=== PATIENT | male | born 1980 | race Caucasian/White ===

== ENCOUNTER → 2019-02-16 18:39 | Outpatient (CLI) | payer OTHER, SELFPAY ==
--- NOTE | 2019-02-16 18:41 | DI.MRI.S_ITS ---
PROCEDURE: MR CERVICAL SPINE WO CON INDICATIONS: Progressive upper extremity weakness TECHNIQUE: Noncontrast sagittal T1 spin echo and T2 fast spin echo, sagittal STIR, foraminal oblique sagittal T2 fast spin echo, and axial gradient echo or T2 fast spin echo through the cervical spine. COMPARISON: [facility], MR, C-SPINE WITHOUT CONTRAST, 08/17/2015, 10:50. FINDINGS: Image quality: Excellent. Alignment and Curvature: There is normal bony alignment. Bone Marrow: Marrow demonstrates normal overall signal. Spinal Cord: Visualized spinal cord has normal size and signal. No cerebellar tonsillar herniation. Paraspinous Soft Tissues: No paravertebral masses. Prevertebral soft tissues are normal in thickness. C2-C3: Normal appearance. C3-C4: Interval increase in disc bulge. Mild indentation on the ventral aspect of the cord. Mild canal stenosis. AP diameter of the canal is 9.5 mm. Bilateral uncovertebral joint hypertrophy. Very mild bilateral foraminal narrowing. C4-C5: The mild diffuse disc bulge with flattening of the anterior aspect of the cord. Mild canal stenosis. AP diameter of the canal is 10 mm. The bilateral uncovertebral joint hypertrophy. Mild left facet hypertrophy. Mild right foraminal narrowing and moderate left foraminal narrowing with indentation on the nerve root sleeve. C5-C6: The interval progression. Diffuse disc bulge. Indentation of the ventral aspect of cord. Moderate to severe canal stenosis. AP diameter of the canal is 8 mm. Bilateral uncovertebral joint hypertrophy. Bilateral facet hypertrophy. Moderate bilateral foraminal narrowing with indentation on the bilateral C6 nerve root sleeves. C6-C7: Interval progression. Moderate diffuse disc bulge flattening the anterior aspect of the cord. Moderate to severe canal stenosis. AP diameter of the canal is 8 mm. Large bilateral uncovertebral joint osteophytes. Severe right foraminal narrowing and moderate to severe left foraminal narrowing with indentation on the bilateral C7 nerve root sleeves. C7-T1: No canal stenosis or foraminal stenosis. IMPRESSION: 1. Diffuse cervical spondylitic change. 2. Interval progression. Multilevel canal stenosis, mild at C3-C4 and C4-C5, and moderate to severe at C5-C6 and C6-C7. 3. Multilevel foraminal narrowing as described above, including moderate left foraminal narrowing at C4-C5, moderate bilateral foraminal narrowing at C5-C6, and severe right and moderate to severe left foraminal narrowing at C6-C7. Dictated by: Carlos Stuart M.D. on 02/17/2019 at 8:31 Approved by: Carlos Stuart M.D. on 02/17/2019 at 8:45
== END ==
PROVIDERS: PCP Nurse Practitioner; Visit Provider Physical Medicine & Rehabilitation
DX: M47.22 Other spondylosis with radiculopathy, cervical region (principal); R29.898 Other symptoms and signs involving the musculoskeletal system; M48.02 Spinal stenosis, cervical region
CPT/HCPCS: 72141

== ENCOUNTER → 2019-07-08 11:07 | Outpatient (CLI) | payer OTHER, SELFPAY ==
[2019-07-08 12:41] LABS: Hematocrit 45.6 % (41-53); Hemoglobin 15.8 g/dL (13.5-17.5); Mean Corpuscular HGB Conc 34.6 % (30-36); Mean Corpuscular Hemoglobin 28.2 PG (26-34); Mean Corpuscular Volume 81.3 fL (80-100); Platelet Count 195 X10^3/uL (150-400); Red Cell Distribution Width 13.8 % (11.6-14.8); White Blood Cell Count 6.2 X10^3/uL (4.5-11.0)
[2019-07-08 13:11] LABS: Alanine Aminotransferase 36 IU/L (<50); Albumin 5.1 g/dL (3.5-5.0); Albumin Globulin Ratio 1.9 (1.0-2.8); Alkaline Phosphatase 57 U/L (38-126); Aspartate Aminotransferase 32 IU/L (17-59); BUN Creatinine Ratio 13.6 (6-22); Bilirubin Total 1.2 mg/dL (0.2-1.3); Blood Urea Nitrogen 15 mg/dL (9-20); Calcium 9.8 mg/dL (8.4-10.2); Carbon Dioxide 28 mmol/L (22-32); Chloride 102 mmol/L (98-107); Cholesterol 162 mg/dL (140-199); Estimated Glomerular Filt Rate > 60.0 mL/min (>60); Globulin 2.7 g/dL (1.7-4.1); Glucose 90 mg/dL (70-100); HDL Cholesterol 45 mg/dL (40-60); HEMOLYSIS < 15 (0-50); LDL Cholesterol Calculated 104 mg/dL (<100); Potassium 4.2 mmol/L (3.4-5.1); Sodium 141 mmol/L (137-145); Total Protein 7.8 g/dL (6.3-8.2); Triglycerides 67 mg/dL (35-150)
[2019-07-08 13:29] LABS: Free T3, Triiodothyronine Free 4.12 pg/mL (2.77-5.27); Free T4, Direct Thyroxine 0.97 ng/dL (0.78-2.19)
== END ==
PROVIDERS: PCP Nurse Practitioner; Referring Provider Nurse Practitioner; Visit Provider Nurse Practitioner
DX: Z00.00 Encounter for general adult medical examination without abnormal findings (principal); R19.4 Change in bowel habit; R19.5 Other fecal abnormalities; R50.9 Fever, unspecified
CPT/HCPCS: 36415; 80053; 80061; 84439; 84443; 84481; 85027